=== PATIENT | male | born 1995 | race Caucasian/White ===

== ENCOUNTER → 2021-04-20 | Day surgery (SDC) | payer OTHER ==
[~2021-04-20] MED LIST: Acetaminophen 325 MG Tab PO ONE; Acetaminophen 325 MG Tab PO PRN; HYDROmorphone 1 MG/ML Syringe IVPUSH ONE; Lactated Ringers 1,000 ML IV SCH; Morphine 4 MG/ML VIAL IV PRN; Ondansetron 4 MG/2 ML SDV IVPUSH PRN; Piperacillin/Tazobactam 3.375 GM in Sodium Chloride 0.9% 100 ML IV ONE; Sodium Chloride 0.9% 10 ML Syringe FLUSH PRN
[2021-04-20] MEDS: Piperacillin/Tazobactam 3.375 GM in Sodium Chloride 0.9% 100 ML IV SCH (22:03)
--- NOTE | 2021-04-20 22:04 | OR ---
DATE OF OPERATION: 04/20/2021 PREOPERATIVE DIAGNOSIS: INFECTED PILONIDAL CYST WITH ABSCESS. POSTOPERATIVE DIAGNOSIS: INFECTED PILONIDAL CYST WITH ABSCESS. SURGEON: Paul Bean MD PROCEDURE: INCISION AND DRAINAGE WITH DEBRIDEMENT OF INFECTED PILONIDAL CYST. ANESTHESIA: General. ESTIMATED BLOOD LOSS: Minimum. SPECIMEN: None. INDICATIONS: This 25-year-old male has a week-long history of a pilonidal cyst that has been enlarging and reddening. The patient has had a small amount of spontaneous drainage, which is purulent. This is by physical examination an infected pilonidal cyst. Over the last 2 days, he has developed a fever of 101 to 103. DESCRIPTION OF PROCEDURE: After adequate preparation, a midline incision was made over the pilonidal cyst and a suction was used to aspirate and clear out approximately 20 mL of purulent pus. By expert digital exploration of the pilonidal cyst, this extended about 3 to 4 cm inferiorly toward the coccyx and therefore the skin over that area that had some pitting for hair follicles was incised to expose the lower portion. The necrotic tissue was then debrided from the pilonidal cyst cavity, especially in the upper end. Hemostasis was controlled by cautery. The wound was irrigated with copious amount of saline and suctioned and dried clear. There appeared to be good viable tissue remaining in the base of the cyst, which went all the way down to the sacral fascia. I partly closed the upper end with two 2-0 sutures to decrease at least the upper cavity portion, which was the biggest area. A Kerlix plain gauze pad was then used to pack the entire pilonidal cyst area. The patient was taken to recovery room. KAREN/JESSICA /[id number]
[2021-04-20] MEDS: Acetaminophen/oxyCODONE 325-5 MG Tab PO PRN (23:24)
[2021-04-21] MEDS: Piperacillin/Tazobactam 3.375 GM in Sodium Chloride 0.9% 100 ML IV SCH (03:36)
[2021-04-21] MEDS: Acetaminophen/oxyCODONE 325-5 MG Tab PO PRN ×3 (03:37→13:34)
--- NOTE | 2021-04-21 08:23 | PCM.SN.2 ---
- Free Text/Narrative Note: Stable POD#1. Pain controlled. PO liquids tolerated well. Wound pack changed, minimal bleeding. Ambulates well. Can discharge today. Percocet #30 given for pain control. FU my clinic 05-03-21. ALLY Truong in [place] Saturday04-24-21 for dressing changes. Off work until 05-01-21.
[2021-04-21 11:42] VITALS: BP 107/52; PULSE 71
== END | disposition home or self-care (01) ==
LOC: CC.SDS 12:57
PROVIDERS: ATTEND Surgery
DX: L05.01 Pilonidal cyst with abscess (principal); E11.9 Type 2 diabetes mellitus without complications; E66.9 Obesity, unspecified; Z88.0 Allergy status to penicillin; Z68.42 Body mass index [BMI] 45.0-49.9, adult
CPT/HCPCS: 10080; A9270; J2543; J7120; 00300; J1170